=== PATIENT | female | born 1985 | race Caucasian/White ===

== ENCOUNTER 2017-05-20 15:05 | Outpatient (CLI) | payer OTHER ==
[2017-05-20 12:41] LABS: BASOPHILS # (AUTO) 0.1 10^3/uL (0.0-0.1); BASOPHILS % (AUTO) 0.5 %; EOSINOPHILS # (AUTO) 0.2 10^3/uL (0.0-0.7); EOSINOPHILS % (AUTO) 1.5 %; HCT - HEMATOCRIT 40.5 % (37.0-47.0); HGB - HEMOGLOBIN 13.4 g/dL (12.0-16.0); LYMPHOCYTES # (AUTO) 3.3 10^3/uL (1.5-3.5); LYMPHOCYTES % (AUTO) 22.5 %; MEAN CORPUSCULAR HGB CONC 33.1 g/dL (32.0-36.0); MEAN CORPUSCULAR VOLUME 75.6 fL (81.0-99.0); MEAN PLATELET VOLUME 8.5 fL (7.9-10.8); MONOCYTES # (AUTO) 0.8 10^3/uL (0.0-1.0); MONOCYTES % (AUTO) 5.3 %; NEUTROPHILS # (AUTO) 10.4 10^3/uL (1.5-6.6); NEUTROPHILS % (AUTO) 70.2 %; NUCLEATED RED BLOOD CELLS AUTO 0.1 /100WBC; RED BLOOD COUNT 5.35 10^6/uL (4.20-5.40); RED CELL DISTRIBUTION WIDTH 15.3 % (12.0-15.0); UNCORRECTED WHITE BLOOD COUNT 14.8 x10^3/uL; WHITE BLOOD COUNT 14.8 x10^3/uL (4.8-10.8)
[2017-05-20 13:00] LABS: ALBUMIN/GLOBULIN RATIO 0.9 (1.0-2.2); BILIRUBIN,TOTAL 0.8 mg/dL (0.2-1.0); BUN - BLOOD UREA NITROGEN 15 mg/dL (6-20); CARBON DIOXIDE - CO2 21 mmol/L (21-32); CHLORIDE 104 mmol/L (101-111); CHOL/HDL RATIO 3.2 (<4.4); CHOLESTEROL 226 mg/dL; CREATININE 0.4 mg/dL (0.4-1.0); GFR - MDRD 186 (>89); GLUCOSE 101 mg/dL (70-100); HDL CHOLESTEROL 71 mg/dL; LDL/HDL RATIO 1.9 (<4.4); SODIUM 136 mmol/L (135-145); TOTAL PROTEIN 8.1 g/dL (6.7-8.2); TRIGLYCERIDES 109 mg/dL; VLDL CHOLESTEROL 22 mg/dL
== END 2017-05-20 15:06 | disposition home or self-care (01) ==
LOC: LAB.WCP 15:05
PROVIDERS: ATTEND Physician Assistant Medical
DX: Z00.00 Encounter for general adult medical examination without abnormal findings (principal); E66.01 Morbid (severe) obesity due to excess calories
CPT/HCPCS: 36415; 80053; 80061; 84443; 85025

== ENCOUNTER 2017-09-16 08:00 | Outpatient (CLI) | payer OTHER ==
[2017-09-16 12:21] LABS: BASOPHILS % (AUTO) 0.3 %; EOSINOPHILS # (AUTO) 0.3 10^3/uL (0.0-0.7); EOSINOPHILS % (AUTO) 2.1 %; LYMPHOCYTES # (AUTO) 3.1 10^3/uL (1.5-3.5); LYMPHOCYTES % (AUTO) 23.7 %; MEAN CORPUSCULAR HEMOGLOBIN 24.7 pg (27.0-31.0); MEAN CORPUSCULAR HGB CONC 32.7 g/dL (32.0-36.0); MEAN CORPUSCULAR VOLUME 75.6 fL (81.0-99.0); MEAN PLATELET VOLUME 8.5 fL (7.9-10.8); MONOCYTES # (AUTO) 0.7 10^3/uL (0.0-1.0); MONOCYTES % (AUTO) 5.7 %; NEUTROPHILS # (AUTO) 8.8 10^3/uL (1.5-6.6); NEUTROPHILS % (AUTO) 68.2 %; PLT - PLATELET COUNT 351 10^3/uL (130-450); RED BLOOD COUNT 5.28 10^6/uL (4.20-5.40); WHITE BLOOD COUNT 12.9 x10^3/uL (4.8-10.8)
== END 2017-09-16 08:01 ==
LOC: LAB.WCP 08:00
PROVIDERS: ATTEND Physician Assistant Medical
DX: B19.20 Unspecified viral hepatitis C without hepatic coma (principal); D72.829 Elevated white blood cell count, unspecified
CPT/HCPCS: 36415; 85025

== ENCOUNTER 2023-08-12 15:37 | Outpatient (CLI) | payer OTHER ==
--- NOTE | 2023-08-12 16:07 | Sleep Patient Instructions ---
Sleep Center Visit Summary - Patient Visit Information Reason for Visit: Initial consult for evaluation of sleep disordered breathing and other sleep issues. - Patient Instructions Instructions Attached: Sleep Study, Sleep Study Home Monitor Additional Instructions: You will be completing a sleep study, either an in-lab polysomnography (PSG) or home sleep study (HST). You will follow-up in the sleep care office after the sleep study is completed to hear the results and talk about therapy, if needed. You will be called by our office staff to schedule this appointment, but you may contact us with any questions. - Clinic Information Contact: [facility] [address] [place] [id number] [email or web address] T: [phone]
--- NOTE | 2023-08-12 16:14 | SLEEP CARE CONSULTATION ---
Information from patient questionnaire entered by Misty Sauer. I have reviewed and concur with the information entered by Misty Sauer. This document represents the service I personally performed and the decisions made by me, Jen Oreilly ARNP. History of Present Illness Service Date and Time: 08/12/2023 1537 Reason for Visit: New patient Chief Complaint: reports: Unrefreshed sleep, Snoring, Excessive daytime sleepiness, Fatigue, Frequent awakenings at night Date of Onset: 8-7MONTHS Usual bedtime: 8-830PM, usually fall asleep 10-11 Time it takes to fall asleep: 2-4 Snores at night: Yes Observed to quit breathing while asleep: No Sleeps alone due to snoring: No Number of times waking at night: 4 times Reasons for waking at night: reports: Choking, Snoring, Other (UNKNOWN). denies: Gasping for air Toss, Turn, or Twitch while sleeping: Yes Recalls having dreams: Yes Usually gets out of bed at: 6AM Feels refreshed in the morning: No Morning headache: Yes (2 times a week; can last all day) Sleepy or fatigued during the day: Yes Ever fallen asleep while driving: No Takes day naps: No Dreams during day naps: Yes Prior sleep studies: Yes Additional HPI information: I had the pleasure of seeing BEHZAD MEDINA today regarding the possibility of her having a sleep disorder. Her current complaints are unrefreshed sleep, snoring, excessive daytime sleepiness, fatigue and frequent night awakenings. She says that she was diagnosed about 15 years ago with mild SAL and because she was homeless at the time she had her tonsils and adenoids out to reduce apneas. She says it worked well for a while but she is now experiencing an increase in her symptoms. She went to her primary provider with complaints of having some depression and not sleeping well. They referred her here for evaluation. She says she lost 2 siblings within 6 months of each other and has been dealing with depression. She says she lays down about 8 to 8:30 in the evening and is in bed until 6 AM. She says it takes her hours to fall asleep, usually 10 to 11 PM. She only feels like she is getting between 5 and 6 hours of sleep regularly. She cannot eat for 2 hours before bed or she will have nightmares. She says she will either wake up once or multiple times at night. She has woke up feeling like she is choking but denies gasping for air. She will wake up sometimes for no apparent reason and other nights she will wake up crying. Her tells her she snores loudly and she says if they could they would sleep in separate rooms. She has ADHD and tries to avoid napping because this will mess up her sleep. - Parasomnia Symptoms Ever been unable to move upon waking from sleep: No Walks in sleep: No Talks in sleep: Yes Ever acted out dreams in sleep: Yes (has moved clothing in sleep; punched out, hit ; sings in her sleep) Ever felt weak in the knees when startled or emotional: Yes (has not fallen to ground ) Bothered by creepy, crawly, restless sensations in legs: Yes (random times; leg about to fall asleep) Problems with memory or concentration: Yes (both) Subjective Initial [place] Sleepiness Scale score: 10 (08/06/23) Past Medical History Past Medical History: reports: Asthma, Attention deficit (ADHD) Social History 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 Patient is and lives in . Have you smoked in the past 12 months: No Cigarettes per day (20/pack): 6 Quit date: 2015 Alcohol use: Yes Alcohol amount and frequency: A BEER ONCE MONTH Caffeine use: Yes Caffeine amount and frequency: 1-2 DAILY Family History Family history of sleep disordered breathing: Yes Family Hx Sleep Apnea: Mother: Sleep apnea - Treated, Grandparent: Sleep apnea - Treated Allergies and Home Medications Known drug allergies: Yes (as listed) Drug allergies reviewed: Yes Home medication list reviewed: Yes Allergy and home medication list: Allergies acetaminophen Allergy (Verified 08/10/23 09:18) Unknown Home Medications Medication Instructions Recorded Confirmed Last Taken Type Albuterol Sulf [Ventolin Hfa 1 each INH PRN PRN 10/27/17 08/12/23 Unknown History Inhaler] Cetirizine [ZyrTEC] 10 mg PO DAILY 10/27/17 08/12/23 Unknown History Dextroamphetamine/Amphetamine 20 mg PO DAILY 10/27/17 08/12/23 Unknown History [Adderall 20 mg Tablet] Fluticasone [Flonase] 1 each INH DAILY 10/27/17 08/12/23 Unknown History Fluticasone/Salmeterol [Advair 1 each INH BID 10/27/17 08/12/23 Unknown History 250-50 Diskus] Review of Systems Weight gain over past 5 years: 60 Cardiovascular: denies: high blood pressure Gastrointestinal: denies: heartburn Neurological: denies: headaches Psychiatric: reports: Attention Deficit Hyperactivity, depression Ear/Nose/Throat: reports: tonsillectomy, wisdom teeth removed Endocrine: denies: thyroid disease Musculoskeletal: reports: back pain, muscle pain or cramping Physical Exam Vital signs obtained and entered by: MISTY Tabor MA Blood Pressure: 142/88 (LEFT ) Cuff size: wrist Heart Rate: 101 O2 Saturation: 97 Height: 5 ft 3 in Weight: 345 lb 12.8 oz Body Mass Index: 61.2 BMI Classification: Morbidly Obese Neck circumference: 18.5 Mouth and throat: narrow oropharynx Soft palate: long Hard palate: normal Uvula: normal Uvula visualization: 25% Mallampati Class III Tongue: enlarged in size with teeth de oliveira on lateral edges Tonsils: absent bilaterally Neck: normal w/o lymphadenopathy or thyromegaly Heart: regular rate and rhythm Lungs: clear bilaterally Impression and Plan 1. Suspected Obstructive Sleep Apnea-Hypopnea Syndrome, as previously diagnosed and as suggested by a history of loud and irregular snoring, gasping or choking in sleep, morning headache, frequent awakening during the night, unrefreshed sleep, cognitive impairment, and excessive daytime sleepiness. Narrow oropharynx and obesity are common predisposing factors for obstructive sleep apnea-hypopnea syndrome. I recommend proceeding to polysomnography to confirm the diagnosis and to assess severity. If the patient has significant sleep disordered breathing, a manual CPAP titration study will also be performed to find the optimal treatment pressure. I informed the patient of what the sleep studies involve and after some discussion, obtained agreement to proceed. The pathophysiology of obstructive sleep apnea-hypopnea syndrome was discussed with the patient and health risks of cardiovascular and cerebrovascular disease if not treated. Risks of drowsy driving discussed in detail and patient advised to avoid long distance driving and to caul fat puller at the first sign of drowsiness. Patient agreed to plan. * Schedule polysomnography +- manual CPAP titration study and return in 1-2 weeks after the study to discuss result and initiate therapy. * Avoid long distance driving or driving when feeling sleepy. * Avoid alcohol, sedative and muscle relaxant around bedtime. * Attempt to lose weight. * Review instructions provided by trained office staff on how to prepare for the sleep study. * Return for follow-up after sleep study completed. Counseling Topics: Weight loss health impact Plan: PSG/HST Visit Type: In Office Time Spent with Patient (minutes): 31 Provider Statement: I spent 100% of the Face to Face Visit with the patient with greater than 50% spent counseling the patient and coordination of care.
[2023-08-12 16:18] VITALS: BP 142/88; O2SAT 97
== END 2023-08-12 15:38 | disposition home or self-care (01) ==
LOC: SC 15:37
PROVIDERS: ATTEND Nurse Practitioner Family
DX: G47.10 Hypersomnia, unspecified (principal); R53.83 Other fatigue; G47.8 Other sleep disorders; R06.83 Snoring; R41.89 Other symptoms and signs involving cognitive functions and awareness; E66.01 Morbid (severe) obesity due to excess calories; Z68.44 Body mass index [BMI] 60.0-69.9, adult
CPT/HCPCS: 99203; 99212

== ENCOUNTER 2023-08-21 07:30 | Outpatient (CLI) | payer OTHER ==
--- NOTE | 2023-08-21 13:40 | XRAY Report ---
PROCEDURE: Shoulder 2+V RT INDICATIONS: SHOULDER IMPINGEMENT SYNDROME TECHNIQUE: 4 views of the shoulder were acquired. COMPARISON: None. FINDINGS: Bones: No fractures or dislocations. Normal glenohumeral alignment. Acromioclavicular and coracocla vicular intervals are maintained. No suspicious bony lesions. Visualized ribs appear intact. Soft tissues: No suspicious soft tissue calcifications. The visualized lungs are within normal limi ts. IMPRESSION: No acute bony abnormality. Reviewed by: Sally Parr MD on 08/21/2023 1:39 PM PST Approved by: Sally Parr MD on 08/21/2023 1:39 PM [facility] Station ID: [id number]
== END 2023-08-21 07:45 | disposition home or self-care (01) ==
LOC: DI.N 07:30
PROVIDERS: ATTEND Family Medicine
DX: M75.41 Impingement syndrome of right shoulder (principal)

== ENCOUNTER 2023-09-01 19:29 | Outpatient (CLI) | payer OTHER | END 2023-09-01 19:30 | disposition home or self-care (01) | LOC: SC 19:29 | PROVIDERS: ATTEND Nurse Practitioner Family | DX: G47.33 Obstructive sleep apnea (adult) (pediatric) (principal) | CPT/HCPCS: 95810 ==

== ENCOUNTER 2023-09-08 14:30 | Outpatient (CLI) | payer OTHER ==
--- NOTE | 2023-09-08 14:44 | Sleep Patient Instructions ---
Sleep Center Visit Summary - Patient Visit Information Reason for Visit: Sleep study follow-up - Patient Instructions Additional Instructions: You will be completing a titration sleep study in our sleep lab where you will be sleeping with the CPAP machine on and we will be adjusting your pressures to find your optimal pressure settings. Once we have your results back, we will call you and schedule a follow up to go over the results. You will be called by our office staff to schedule your follow up, but you may contact us with any questions or issue as needed. - Clinic Information Contact: [facility] [address] [place] [address] [email or web address] T: [phone]
--- NOTE | 2023-09-08 14:49 | SLEEP CARE CONSULTATION ---
Information from patient questionnaire entered by Misty Sauer. I have reviewed and concur with the information entered by Misty Sauer. This document represents the service I personally performed and the decisions made by , Jen Oreilly ARNP. History of Present Illness Service Date and Time: 09/08/2023 1420 Initial [place] Sleepiness Scale score: 10 (08/06/23) Current [place] Sleepiness Scale score: 11 (09/08/23) Additional HPI information: BEHZAD MEDINA returns for follow up and results of the recently performed polysomnography. The sleep study showed moderate obstructive sleep apnea with an average AHI of 18.9 and raj oxygen saturation of 66%. I explained the pathophysiology behind obstructive sleep apnea. We then spent quite a bit of time discussing different treatment options. For mild obstructive sleep apnea, surgery and oral appliance are alternatives to nasal CPAP therapy but in moderate or severe cases, nasal CPAP is the most effective and reliable treatment. I reviewed the impact of weight changes on sleep apnea and strongly recommended losing weight. After some discussion, the patient opted to go with the nasal CPAP therapy. A manual titration study will be ordered to find optimal pressure with office adjustments. Patient does not drink alcohol. Patient was cautioned about risks of drowsy driving until sleepiness symptoms resolve. Patient denies drowsy driving. Sleep Study - Results Type of Sleep Study: Home sleep study (COMPLETED 09/01/23) Prior sleep studies: Yes Polysomnography/Home Sleep Study results: IMPRESSION: The quality of the study is good. The patient had normal sleep efficiency. The sleep architecture was also normal. Respiratory monitoring showed moderate obstructive sleep apnea- hypopnea (AHI = 18.9) associated with frequent oxyhemoglobin desaturation and moderate hypoxia (raj oxygen saturation of 66%). Baseline oxygen saturation was normal. The respiratory events occurred mainly during REM sleep (supine AHI = 21.6; non-supine = 17.71). Snore was light to moderate in intensity. There was no significant periodic leg movement of sleep. Cardiac rhythm was normal sinus rhythm without significant arrhythmia. No abnormal behavior (parasomnia) observed during the night. Allergies and Home Medications Known drug allergies: Yes (as listed) Drug allergies reviewed: Yes Home medication list reviewed: Yes (Losarten 50 mg; HCTZ 12.5 mg) Allergy and home medication list: Allergies acetaminophen Allergy (Verified 09/07/23 15:36) Unknown Review of Systems Review of systems same as previous: No (HIGH BLOOD PRESSURE) Physical Exam Vital signs obtained and entered by: MISTY Tabor MA Blood Pressure: 186/120 (LEFT ARM) Cuff size: long Heart Rate: 106 O2 Saturation: 96 Height: 5 ft 3 in Weight: 346 lb 9.6 oz Body Mass Index: 61.4 BMI Classification: Morbidly Obese Impression and Plan 1. Obstructive Sleep Apnea-Hypopnea Syndrome, moderate, with lowest oxygen saturation of 66%. Obviously this is the cause of the patients symptoms of unrefreshed sleep, and excessive daytime sleepiness. Positive pressure therapy could benefit hypertension, asthma and attention deficit. As mentioned above, the patient will be started on nasal autoCPAP therapy. A manual titration study will be completed to find optimal treatment pressure with office adjustments. Compliance guidelines also reviewed. Because the apnea is more severe supine, I instructed to avoid sleeping supine using pillow positioning until able to start CPAP use. 2. Hypoxemia, moderate, with a raj oxygen saturation of 66% and 21.8 minutes spent under 90%. The baseline oxygen saturation was normal with an average oxygen saturation of 93%. 3. Obesity, unspecified. Currently patients BMI is 61.4. Obesity increases the risk of apnea, CPAP pressure requirements and overall health risks especially cardiovascular and diabetes. Thus patient is advised to lose weight. 4. Elevated blood pressure reading in patient with hypertension. Her initial blood pressure reading was 180/120 in the office today. She says this is better reading than she has been getting before medication. She says she is working with her doctor with new diagnosis of hypertension. She has a follow up to have her medication dosage reviewed and adjusted in next month or so. She denied feeling chest pain, shortness of air, dizziness or headaches today. * Titration study * Follow up with PCP for elevated blood pressure * Attempt to lose weight. * Avoid alcohol consumption near bedtime. * Avoid supine sleep until using CPAP. * The patient is again cautioned about driving until sleepiness completely resolves. * Return after titration study Counseling Topics: Sleeping position, Weight loss health impact Follow up with Sleep Care in: other (after titration study) Plan: Titration study Visit Type: In Office Time Spent with Patient (minutes): 20 Provider Statement: I spent 100% of the Face to Face Visit with the patient with greater than 50% spent counseling the patient and coordination of care.
[2023-09-08 14:56] VITALS: BP 186/120; O2SAT 96
== END 2023-09-08 14:31 | disposition home or self-care (01) ==
LOC: SC 14:30
PROVIDERS: ATTEND Nurse Practitioner Family
DX: G47.33 Obstructive sleep apnea (adult) (pediatric) (principal); E66.01 Morbid (severe) obesity due to excess calories; Z68.44 Body mass index [BMI] 60.0-69.9, adult; I10 Essential (primary) hypertension
CPT/HCPCS: 99212; 99213

== ENCOUNTER 2023-10-07 19:26 | Outpatient (CLI) | payer OTHER | END 2023-10-07 19:27 | disposition home or self-care (01) | LOC: SC 19:26 | PROVIDERS: ATTEND Nurse Practitioner Family | DX: G47.33 Obstructive sleep apnea (adult) (pediatric) (principal) | CPT/HCPCS: 95811 ==

== ENCOUNTER 2023-10-29 09:04 | Outpatient (CLI) | payer OTHER ==
--- NOTE | 2023-10-29 09:42 | Sleep Patient Instructions ---
Sleep Center Visit Summary - Patient Visit Information Reason for Visit: Follow-up titration study - Patient Instructions Additional Instructions: You are being started on CPAP therapy with pressure setting at 5-8 cmH2O. You will need to call the sleep care office to set up your follow up once you have your CPAP machine to check compliance and response to therapy at that time. You may call the office with any concerns about pressure feeling too low or too much for adjustment, if needed. You should contact DME supplier for any questions or concerns about mask or equipment. Please call office to schedule a follow up appointment in the sleep care office one month after obtaining new device. - Clinic Information Contact: [facility] [address] [place] [address] [email or web address] T: [phone]
--- NOTE | 2023-10-29 09:45 | SLEEP CARE CONSULTATION ---
Information from patient questionnaire entered by Misty Sauer. I have reviewed and concur with the information entered by Misty Sauer. This document represents the service I personally performed and the decisions made by , Jen Oreilly ARNP. History of Present Illness Service Date and Time: 10/29/2023 09 Initial [place] Sleepiness Scale score: 10 (08/06/23) Current [place] Sleepiness Scale score: 10 (10/29/23) Additional HPI information: BEHZAD SANTIZOKing returns for follow up of a manual CPAP titration study performed on 10/07/2023. Previous study done on 09/01/2023 showed moderate obstructive sleep apnea with AHI 18.9. The patient was informed of the following polysomnography findings: CPAP was initiated at 5 cmH2O and titrated up to CPAP at 8 cmH2O. CPAP at 6 cmH2O appeared to be optimal (AHI of 1.9 per hour on the pressure). There was supine sleep but no REM sleep on the pressure. Oxygen saturation was normal throughout the night. Lower CPAP settings appeared adequate as well. The patient tolerated positive airway pressure therapy very well. I explained how CPAP machine works and what to expect when using the machine. Using CPAP every night in order to get used to it was emphasized. Patient advised to put CPAP mask on before getting into bed so as not to fall asleep without CPAP. To assist acclimation to CPAP use, it could also be used for a short time during day while reading or watching TV. The patient was instructed to call the CPAP supplier to discuss any mechanical problem that may occur. If the mask given is uncomfortable or is difficult to keep on through the night even with adjustment, contact the CPAP supplier as many will replace with another mask style if notified before 30 days. If snoring or perceives is not getting enough air or too much air from the machine, notify this office. Patient counseled not drink alcohol less than 4 hours before bedtime as it can increase snoring and apnea. Patient was cautioned about risks of drowsy driving until sleepiness symptoms resolve. Patient denies drowsy driving. Sleep Study - Results Type of Sleep Study: Home sleep study (COMPLETED 09/01/23 TITRATION STUDY ) Prior sleep studies: Yes Polysomnography/Home Sleep Study results: IMPRESSION: The quality of the study is good. CPAP was initiated at 5 cmH2O and titrated up to CPAP at 8 cmH2O. CPAP at 6 cmH2O appeared to be optimal (AHI of 1.9 per hour on the pressure). There was supine sleep but no REM sleep on the pressure. Oxygen saturation was normal throughout the night. Lower CPAP settings appeared adequate as well. The patient tolerated positive airway pressure therapy very well. The patients sleep efficiency was normal. The sleep architecture was relatively normal considering the first-night effect. There was no periodic leg movement of sleep. Cardiac rhythm was normal sinus rhythm without significant arrhythmia. No abnormal behavior (parasomnia) observed during the night. Allergies and Home Medications Known drug allergies: Yes (as listed) Drug allergies reviewed: Yes Home medication list reviewed: Yes (as listed) Allergy and home medication list: Allergies acetaminophen Allergy (Verified 10/26/23 11:17) Unknown Home Medications Medication Instructions Recorded Confirmed Last Taken Type Albuterol Sulf [Ventolin Hfa 1 each INH PRN PRN 10/27/17 10/29/23 Unknown History Inhaler] Cetirizine [ZyrTEC] 10 mg PO DAILY 10/27/17 10/29/23 Unknown History Dextroamphetamine/Amphetamine 20 mg PO DAILY 10/27/17 10/29/23 Unknown History [Adderall 20 mg Tablet] Fluticasone [Flonase] 1 each INH DAILY 10/27/17 10/29/23 Unknown History Fluticasone/Salmeterol [Advair 1 each INH BID 10/27/17 10/29/23 Unknown History 250-50 Diskus] Losartan/Hydrochlorothiazide See Rx Instructions .ROUTE .COMPLEX 09/08/23 10/29/23 Unknown History [Hyzaar 50-12.5 Tablet] Gabapentin [Neurontin] See Rx Instructions .ROUTE .COMPLEX 10/29/23 10/29/23 Unknown History Losartan [Cozaar] See Rx Instructions .ROUTE .COMPLEX 10/29/23 10/29/23 Unknown History amLODIPine [Norvasc] See Rx Instructions .ROUTE .COMPLEX 10/29/23 10/29/23 Unknown History hydroCHLOROthiazide See Rx Instructions .ROUTE .COMPLEX 10/29/23 10/29/23 Unknown History [Hydrochlorothiazide] metFORMIN [Glucophage] See Rx Instructions .ROUTE .COMPLEX 10/29/23 10/29/23 Unknown History Review of Systems Review of systems same as previous: No (HYPERTENSION, PRE DIABETIC) Physical Exam Vital signs obtained and entered by: MISTY Tabor MA Blood Pressure: 191/96 (LEFT ARM) Cuff size: long Heart Rate: 91 O2 Saturation: 98 Height: 5 ft 3 in Weight: 349 lb 9.6 oz Body Mass Index: 61.9 BMI Classification: Morbidly Obese Impression and Plan 1. Obstructive Sleep Apnea-Hypopnea Syndrome, moderate. Behzad returns today after CPAP titration study to be set up on CPAP therapy. Obviously this is the cause of the patients symptoms of unrefreshed sleep, and excessive daytime sleepiness. Positive pressure therapy could benefit hypertension, diabetes and attention deficit. The patient will be started on nasal autoCPAP therapy with pressure set at 5-8 cmH2O. Compliance guidelines also reviewed. A copy of compliance guidelines will be given for reference at check out. 2. Obesity, unspecified. Currently patients BMI is 61.9. Obesity increases the risk of apnea, CPAP pressure requirements and overall health risks especially cardiovascular and diabetes. Thus patient is advised to lose weight. * Nasal auto CPAP therapy, pressure at 5-8 cm H2O. * Attempt to lose weight. * Avoid alcohol consumption near bedtime. * Avoid supine sleep until using CPAP. * The patient is again cautioned about driving until sleepiness completely resolves. * Return one month after CPAP obtained. I will assess response to therapy and compliance at that time. Counseling Topics: Weight loss health impact Prescriptions: Auto CPAP Plan: start CPAP and compliance visit Visit Type: In Office Time Spent with Patient (minutes): 20 Provider Statement: I spent 100% of the Face to Face Visit with the patient with greater than 50% spent counseling the patient and coordination of care.
[2023-10-29 09:55] VITALS: BP 191/96; O2SAT 98
== END 2023-10-29 09:05 | disposition home or self-care (01) ==
LOC: SC 09:04
PROVIDERS: ATTEND Nurse Practitioner Family
DX: G47.33 Obstructive sleep apnea (adult) (pediatric) (principal); E66.01 Morbid (severe) obesity due to excess calories; Z68.44 Body mass index [BMI] 60.0-69.9, adult
CPT/HCPCS: 99212; 99213

== ENCOUNTER 2024-02-12 08:08 | Outpatient (CLI) | payer OTHER ==
--- NOTE | 2024-02-12 08:45 | Sleep Patient Instructions ---
Sleep Center Visit Summary - Patient Visit Information Reason for Visit: First Compliance follow up with PAP therapy - Patient Instructions Additional Instructions: You were here for follow up of CPAP therapy. You will be continued on CPAP therapy with pressure at 5-8 cmH2O. You should follow up with sleep care in 1-2 months. You may contact us sooner for any questions or concerns. - Clinic Information Contact: [facility] [address] [place] [id number] [email or web address] T: [phone]
--- NOTE | 2024-02-12 08:49 | SLEEP CARE CONSULTATION ---
Information from patient questionnaire entered by Misty Sauer. I have reviewed and concur with the information entered by Misty Sauer. This document represents the service I personally performed and the decisions made by me, Jen Oreilly ARNP. History of Present Illness Service Date and Time: 02/12/2024 0808 Previous diagnosis: Moderate, Obstructive Sleep Apnea-Hypopnea Syndrome AHI: 18.9 (09/01/2023) Reason for follow up: first compliance Equipment type: CPAP (RESMED Airsense 10 S/U 11/13/23) Equipment obtained from: Other ([facility]; getting supplies) Mask style: Nasal Mask brand: [employer] ([place]onzalez) Backup mask available: Yes (old mask from sleep study) Last cushion change: last week Prior sleep studies: Yes Type of Sleep Study: Home sleep study (COMPLETED 09/01/23 TITRATION STUDY 10/07/23) HPI additional information: BEHZAD MEDINA was diagnosed to have moderate, AHI 18.9, obstructive sleep apnea-hypopnea syndrome and returned today for CPAP therapy first compliance follow-up. Sleep Study - Results Type of Sleep Study: Home sleep study (COMPLETED 09/01/23 TITRATION STUDY 10/07/23) Prior sleep studies: Yes CPAP Compliance Data - Data Reviewed with Patient Average duration of nightly device use: 6 HRS 32 MINS Compliance rate %: 70 (11/13/23-12/12/23; 77% in last 30 days) Current pressure setting (cmH2O): 5-8 Average residual AHI: 0.2 Central apnea: 0 Obstructive apnea: 0.2 Hypopnea: 0 Average large leak: 0 L/min Subjective Missed days of use due to: reports: travel (camping), other (TOO HOT) Patient concerns: denies: aerophagia, mask discomfort, air blowing in eyes, mask leak noise, condensation in mask/hose, nasal congestion, dry mouth, nose, throat, epistaxis Observed to snore while using device: No Current pressure setting perceived as: comfortable On therapy, patient: reports: sleeping better, being more awake and alert during the day. denies: drowsiness while driving Initial [place] Sleepiness Scale score: 10 (08/06/23) Current [place] Sleepiness Scale score: 13 (02/12/24) Allergies and Home Medications Known drug allergies: Yes (as listed) Drug allergies reviewed: Yes Home medication list reviewed: Yes (Metformin 500 mg daily; Amlodipine 5 mg daily; Losartan increased to 100 mg) Allergy and home medication list: Allergies acetaminophen Allergy (Verified 02/12/24 08:09) Unknown Review of Systems Review of systems same as previous: No (Pre-diabetic) Physical Exam Vital signs obtained and entered by: MISTY Tabor MA Blood Pressure: 166/104 (LEFT WRIST) Cuff size: regular Heart Rate: 92 O2 Saturation: 100 Height: 5 ft 3 in Weight: 352 lb 6.4 oz Weight change since last visit: 3 lb gain Body Mass Index: 62.4 BMI Classification: Morbidly Obese Impression and Plan 1. Obstructive Sleep Apnea-Hypopnea Syndrome, moderate, with good treatment compliance and good apnea control. On CPAP therapy, the patient has better sleep quality. She has been doing well with using her CPAP. She does feel improved daytime energy and alertness. She has significant improvement of her sleep apnea and pressure is comfortable. She is stressed due to her mother's health is not doing well right now which is affecting her sleep and restfulness. Patient's apnea severity and rationale for treatment to reduce apnea, improve sleep quality and reduce cardiovascular and cerebrovascular events was reviewed. I also reviewed the benefit of consistent device use of CPAP for hypertension, pre-diabetes, attention deficit. 2. Obesity, unspecified. Currently patients BMI is 62.4. Obesity increases the risk of apnea, CPAP pressure requirements and overall health risks especially cardiovascular and diabetes. Thus patient is advised to lose weight. * Continue auto CPAP pressure at 5-8 cmH2O * Notify me if snoring with mask or feeling that the pressure is too much or too little * Attempt to lose weight * Call this office if any problems using CPAP * Return for follow up in 1-2 months, or sooner if concerns arise Counseling Topics: Spare mask, Weight loss health impact Follow up with Sleep Care in: 1-2 months Visit Type: In Office Time Spent with Patient (minutes): 20 Provider Statement: I spent 100% of the Face to Face Visit with the patient with greater than 50% spent counseling the patient and coordination of care.
[2024-02-12 08:52] VITALS: BP 166/104; O2SAT 100
== END 2024-02-12 08:09 | disposition home or self-care (01) ==
LOC: SC 08:08
PROVIDERS: ATTEND Nurse Practitioner Family
DX: G47.33 Obstructive sleep apnea (adult) (pediatric) (principal); E66.01 Morbid (severe) obesity due to excess calories; Z68.44 Body mass index [BMI] 60.0-69.9, adult
CPT/HCPCS: 99212; 99213